=== PATIENT | male | born 1970 | race Two or more races ===

== ENCOUNTER 2017-03-17 14:55 | Outpatient (CLI) | payer BC ==
[~2017-03-17] VITALS: Ht 167.6 cm; Wt 52.3 kg
[2017-03-17] MEDS ORDERED: PENT400T2 PO (15:05)
[2017-03-17] MEDS ORDERED: CHLO25CA9 PO (15:05)
[2017-03-17] MEDS ORDERED: THIA100T10 PO (15:05)
[2017-03-17 15:06] VITALS: BP 115/70; PULSE 114; RESP 18; Ht 167.6 cm; Wt 52.3 kg
--- NOTE | 2017-03-17 16:15 | PN ---
Date/Time of Note Date/Time of Note DATE: 03/17/17 TIME: 16:07 Outpatient Progress Note Chief Complaint Alcohol hepatitis/encephalopathy improving/anemia/hyperbilirubinemia/drug abuse/ depression HPI Alcohol hepatitis/patient was recently admitted with alcohol hepatitis, patient still has severe jaundice, has poor appetite, has nausea, and no vomiting at present, no sign of alcohol withdrawal at present, Encephalopathy patient has [place] encephalopathy, improved, patient awake alert, Anemia/no hematemesis melena, few bruises, no bleeding, Hyperbilirubinemia/patient has severe jaundice, patient has nausea, Drug abuse/patient has history of drug abuse, alcohol abuse, and Depression/patient has history of depression, at present patient is not depressed and not on any medication, Review of Systems Const: No Fever, no chills, no Wt. loss, no Fatigue, normal appetite, no diaphoresis. Eyes: No pain, no discharge, no redness, no visual change, no foreign body. Patient has jaundice, ENT: No pain, no bleeding, no congestion, no sore throat, no dysphagia, no discharge or rhinitis. Lymph: No adenopathy, no tender nodes, no lymphedema. Resp: No SOB, no cough, no sputum, no wheezing, no chest pain. CV: No chest pain, no palpitaions, no ALLRED, no PND, no edema. GI: Normal appetite, no pain, patient has nausea, no vomiting, no diarrhea, no blood, no constipation. : No frequency, no urgency, no dysuria, no hematuria, no flank pain, no discharge, no bleeding. Musc: , no back pain, no neck pain, no knee pain, no restricted ROM. Skin: No rash, no skin lesions, no erythema, no laceration, no bruising, no pruritus. Neuro: Awake and alert, no SOOD, no dizziness, no syncope, no seizure, no focal- weakness. Endo: No polyuria, no polydypsia, no dry-skin, no temp-intolerance. Psych: No hallucinations, no depression, no anxiety, no suicidal ideation. Ext: No edema, no pain, no ulcer, no weakness. Physical Exam Vital Signs Date Time Temp Pulse Resp B/P Pulse Ox O2 Delivery O2 Flow Rate FiO2 03/17/17 15:06 98.0 114 18 115/70 100 Room Air General Appearance: A 47 year-old male who appears well-developed, well- nourished, in no acute distress. HEENT: Head normocephalic, atraumatic. Pupils equal, round, reactive to light and accommodate. Sclerae are moderately jaundice. Nasal turbinates pink without erythema or nasal discharge. Mucous membranes pink and moist without lesions. Oropharynx clear without any exudate or discharge. NECK: Supple. Trachea midline, No thyromegaly, No cervical lymphadenopathy, No mass, No carotid bruits, No JVD, Carotid pulses 2+ bilaterally. PULMONARY: Clear to auscultaion bilaterally, No retractions, Chest expansion symmetric bilaterally, no rales, no ronchi, no dulness on percussion. CARDIAC: Normal SI and S2, Regular rate and rythm, no murmur, gallop, or rub. GASTROINTESTINAL: Abdomen is soft, non-tender, Non Rigid, No distention, Positive bowel sounds x4 quadrants, Liver normal. SKIN: Warm, dry, no rash, few bruise, and echmosis. EXTREMITIES: Bilateral lower extremities no edema, no phlabitus, pulse palpable , no contracture. MUSCULOSKELETAL: Spine Normal, Non-tender, Normal range of motion, No swelling, no deformity, no clubbing, or cyanosis, the patient has no edema to bilateral lower extremities, dorsalis pedis pulses palpable bilaterally. NEUROLOGIC: The patient is awake, alert, oriented, responding to yes/no questions appropriately, moving all extremities, cranial nerve intact, normal strenght, normal power, normal coordination, normal gait. Allergies Coded Allergies: No Known Drug Allergies (Verified Allergy, Unknown, 03/17/17) PMH Encephalopathy/cirrhosis/alcoholic hepatitis/psychosis/fatty liver/anemia/ thrombocytopenia/hyperbilirubinemia/drug abuse/hypokalemia/hypomagnesemia/ hypophosphatemia/ Social Hx Patient smokes, and used to drink, has not drank after the discharge, history of drug abuse, Family Hx Noncontributory Assessment/Plan Impression Alcohol hepatitis/encephalopathy/anemia/hyperbilirubinemia/drug abuse/history of depression Plan Patient education done about his condition and prognosis, patient prognosis is grave, discussed with the patient to turn around, no drugs no drinking no alcohol, Eat properly exercise, and follow-up with the primary care physician on regular basis, Fall precaution, also discussed with the patient about encephalopathy, and discussed with the family, Zofran as needed for nausea and vomiting, Patient will need CBC CMP next visit, discussed with the family, Patient very high risk for repeated admission, and also high risk for pneumonia aspiration, fall, encephalopathy and sudden , patient and the family explained in aware of it, Medications Home Meds Reported Medications Thiamine* (Thiamine*) 100 Mg Tablet, 100 MG PO DAILY, TAB 03/17/17 Chlordiazepoxide* (Chlordiazepoxide*) 25 Mg Capsule, 25 MG PO Q4, CAP 03/17/17 Pentoxifylline* (Pentoxifylline*) 400 Mg Tablet.sa, 400 MG PO TID, TAB 03/17/17 JOSIAS ÁLVAREZ MD Mar 17, 2017 16:15
== END 2017-03-17 17:00 | disposition home or self-care (01) ==
LOC: DCC 14:55
PROVIDERS: ATTEND Internal Medicine
DX: K70.10 Alcoholic hepatitis without ascites (principal); G93.40 Encephalopathy, unspecified; D64.9 Anemia, unspecified; E80.6 Other disorders of bilirubin metabolism; F19.10 Other psychoactive substance abuse, uncomplicated; F32.9 Major depressive disorder, single episode, unspecified; Z72.0 Tobacco use
CPT/HCPCS: G0463

== ENCOUNTER 2017-03-28 11:15 | Outpatient (CLI) | payer BC ==
[~2017-03-28] VITALS: Ht 167.6 cm; Wt 53.6 kg
[~2017-03-28 11:15] MED LIST: CHLO25CA9 PO; PENT400T2 PO; THIA100T10 PO
[2017-03-28 11:44] VITALS: BP 100/64; PULSE 99; RESP 18; Ht 167.6 cm; Wt 53.6 kg
--- NOTE | 2017-03-28 15:39 | PN ---
Date/Time of Note Date/Time of Note DATE: 03/28/17 TIME: 15:35 Outpatient Progress Note Chief Complaint Cirrhosis/anemia/hyperbilirubinemia HPI Cirrhosis/patient has cirrhosis of liver, patient was recently admitted with alcoholic cirrhosis and encephalopathy, patient following instruction, patient awake alert, no seizure, no confusion, patient is ambulating, no fall, still has jaundice, Anemia/hematemesis or melena, Hyperbilirubinemia/patient has jaundice, slight itching, Review of Systems Const: No Fever, no chills, slight Wt. loss, minimal fatigue, normal appetite, no diaphoresis. Eyes: No pain, no discharge, no redness, no visual change, no foreign body.,, Jaundice, ENT: No pain, no bleeding, no congestion, no sore throat, no dysphagia, no discharge or rhinitis. Lymph: No adenopathy, no tender nodes, no lymphedema. Resp: No SOB, no cough, no sputum, no wheezing, no chest pain. CV: No chest pain, no palpitaions, no ALLRED, no PND, no edema. GI: Normal appetite, no pain, no nausea, no vomiting, no diarrhea, no blood, no constipation. : No frequency, no urgency, no dysuria, no hematuria, no flank pain, no discharge, no bleeding. Musc: No back pain, no neck pain, no knee pain, no restricted ROM. Skin: No rash, no skin lesions, no erythema, no laceration, no bruising, no pruritus. Neuro: No SOOD, no dizziness, no syncope, no seizure, no focal-weakness. Endo: No polyuria, no polydypsia, no dry-skin, no temp-intolerance. Psych: No hallucinations, no depression, no anxiety, no suicidal ideation. Ext: No edema, no pain, no ulcer, no weakness. Physical Exam Vital Signs Date Time Temp Pulse Resp B/P Pulse Ox O2 Delivery O2 Flow Rate FiO2 03/28/17 11:44 98.4 99 18 100/64 100 Room Air General Appearance: A 47 year-old male who appears well-developed, well- nourished, in no acute distress. HEENT: Head normocephalic, atraumatic. Pupils equal, round, reactive to light and accommodate. Sclerae are jaundice. Nasal turbinates pink without erythema or nasal discharge. Mucous membranes pink and moist without lesions. Oropharynx clear without any exudate or discharge. NECK: Supple. Trachea midline, No thyromegaly, No cervical lymphadenopathy, No mass, No carotid bruits, No JVD, Carotid pulses 2+ bilaterally. PULMONARY: Clear to auscultaion bilaterally, No retractions, Chest expansion symmetric bilaterally, no rales, no ronchi, no dulness on percussion. CARDIAC: Normal SI and S2, Regular rate and rythm, no murmur, gallop, or rub. GASTROINTESTINAL: Abdomen is soft, non-tender, Non Rigid, No distention, Positive bowel sounds x4 quadrants, Liver normal. SKIN: Warm, dry, no rash, no bruise, no echmosis. EXTREMITIES: Bilateral lower extremities normal, no edema, no phlabitus, pulse palpable, no contracture. MUSCULOSKELETAL: Spine Normal, Non-tender, Normal range of motion, No swelling, no deformity, no clubbing, or cyanosis, the patient has no edema to bilateral lower extremities, dorsalis pedis pulses palpable bilaterally. NEUROLOGIC: The patient is awake, alert, oriented, responding to yes/no questions appropriately, moving all extremities, cranial nerve intact, normal strenght, normal power, normal coordination, normal gait. Allergies Coded Allergies: No Known Drug Allergies (Verified Allergy, Unknown, 03/17/17) PMH No change Social Hx No change Family Hx No change Assessment/Plan Impression Cirrhosis Anemia Hyperlipidemia History of depression Plan Patient education done about his condition and disease, Patient encouraged to follow with the primary care physician, Patient encourage to monitor for encephalopathy, discussed with the family, no drinking, no drugs, monitor for fall, Monitor for jaundice and anemia, and bleeding, patient education done when to report to the physician, or go to the ER, Patient encouraged to follow with the primary care physician, Medications Home Meds Reported Medications Thiamine* (Thiamine*) 100 Mg Tablet, 100 MG PO DAILY, TAB 03/17/17 Chlordiazepoxide* (Chlordiazepoxide*) 25 Mg Capsule, 25 MG PO Q4, CAP 03/17/17 Pentoxifylline* (Pentoxifylline*) 400 Mg Tablet.sa, 400 MG PO TID, TAB 03/17/17 JOSIAS ÁLVAREZ MD Mar 28, 2017 15:39
== END 2017-03-28 16:22 | disposition home or self-care (01) ==
LOC: DCC 11:15
PROVIDERS: ATTEND Internal Medicine
DX: K74.60 Unspecified cirrhosis of liver (principal); D64.9 Anemia, unspecified; E78.5 Hyperlipidemia, unspecified; F32.9 Major depressive disorder, single episode, unspecified; R41.82 Altered mental status, unspecified; E80.6 Other disorders of bilirubin metabolism
CPT/HCPCS: G0463

== ENCOUNTER 2018-03-08 13:52 | Day surgery (SDC) | END 2018-03-08 17:26 | disposition home or self-care (01) ==